=== PATIENT | male | born 1995 | race Caucasian/White ===

== ENCOUNTER → 2019-06-15 | Outpatient (CLI) | payer BC ==
--- NOTE | 2019-06-16 03:34 | REP ---
Clinical: Pain. Technique: AP, lateral, bilateral oblique views of the left hand. Findings: Osseous structures, joint spaces, and surrounding soft tissues are normal. No acute fracture dislocation. No obvious arthritic changes. No congenital abnormality noted. No subcutaneous emphysema or radiodense foreign body. Impression: Normal left hand radiographs. Electronically Signed by Quinten Farooq MD 06/16/2019 03:26 A
== END ==
LOC: M WUC 09:26
PROVIDERS: ATTEND Nurse Practitioner Family
DX: M79.645 Pain in left finger(s) (principal)

== ENCOUNTER 2019-07-29 18:37 | Emergency (ER) | payer BC ==
[~2019-07-29] VITALS: Ht 165.1 cm; Wt 81.8 kg
[2019-07-29 18:38] VITALS: BP 183/94
[2019-07-29] MEDS ORDERED: VENL50TA2 PO (18:44)
== END 2019-07-29 23:31 | disposition home or self-care (01) ==
LOC: M ED 18:37
DX: S01.01XA Laceration without foreign body of scalp, initial encounter (principal); V00.131A Fall from skateboard, initial encounter; Y93.51 Activity, roller skating (inline) and skateboarding; Y92.410 Unspecified street and highway as the place of occurrence of the external cause; Z79.899 Other long term (current) drug therapy

== ENCOUNTER → 2019-09-30 | Outpatient (CLI) | payer BC ==
[~2019-09-30] MED LIST: VENL50TA2 PO
== END ==
LOC: M OUTALCOH 12:48
PROVIDERS: ATTEND Psychiatry & Neurology Psychiatry
DX: F12.10 Cannabis abuse, uncomplicated (principal)

== ENCOUNTER 2019-12-21 11:39 | Emergency (ER) | payer OTHER, BC ==
[~2019-12-21] VITALS: Ht 167.6 cm; Wt 83.0 kg
[2019-12-21] MEDS ORDERED: LIDOCAINE W/EPINEPHRINE 1% 20ML VIAL SC ONE (13:00)
[2019-12-21 13:41] VITALS: BP 131/69
== END 2019-12-21 13:41 | disposition home or self-care (01) ==
LOC: M ED 11:39
DX: S51.812A Laceration without foreign body of left forearm, initial encounter (principal); W26.8XXA Contact with other sharp object(s), not elsewhere classified, initial encounter; Y99.0 Civilian activity done for income or pay

== ENCOUNTER → 2021-02-21 | Outpatient (CLI) | payer BC ==
--- NOTE | 2021-02-21 16:29 | REP ---
INDICATION: PAIN AFTER FALL FROM [place] COMPARISON: None. TECHNIQUE: AP, lateral, bilateral oblique views right and left foot. FINDINGS: The osseous structures, joint spaces, and surrounding soft tissues are essentially symmetric and normal. There is no evidence for acute fracture or dislocation. No significant degenerative changes. No subcutaneous emphysema or foreign body. IMPRESSION: Symmetric normal age-appropriate bilateral foot radiographs. No acute fracture or dislocation. <Electronically signed by Quinten Farooq > 02/21/21 2053
== END ==
LOC: M WUC 15:45
PROVIDERS: ATTEND Nurse Practitioner Family
DX: M25.572 Pain in left ankle and joints of left foot (principal); W13.0XXA Fall from, out of or through balcony, initial encounter; Y92.89 Other specified places as the place of occurrence of the external cause; Z91.81 History of falling; Y99.9 Unspecified external cause status

== ENCOUNTER → 2024-04-27 | Outpatient (CLI) | payer BC | LOC: M WUC 13:35 | PROVIDERS: ATTEND Nurse Practitioner Family | DX: M54.50 Low back pain, unspecified (principal) ==